=== PATIENT | female | born 1970 | race Caucasian/White ===

== ENCOUNTER 2017-04-16 19:48 | Emergency (ER) | payer BC, OTHER ==
[~2017-04-16] VITALS: Ht 152.4 cm; Wt 76.0 kg
[2017-04-16 19:54] VITALS: Ht 152.4 cm; Wt 76.0 kg
[2017-04-16] MEDS ORDERED: CLIN-73 PO (20:29)
[2017-04-16] MEDS ORDERED: HYDR-906 PO (20:30)
--- NOTE | 2017-04-16 20:54 | ERD ---
ER Documentation Chief Complaint Date/Time DATE: 04/16/17 TIME: 20:47 Chief Complaint PAIN UNDER L EYE FOR 3 WEEKS HPI This is a 47-year-old female presents to the ER with molar pain for the last 3 weeks. Patient states that she has a bridge next to the molar and that she has had throbbing pain. Patient states that today she noticed that area above the molar was getting slightly swollen. Patient denies any fevers or chills. She denies any difficulty swallowing. Patient states that the murmur is more painful whenever she eats. Patient went to the dentist about a month ago and said that everything was normal at that time. ROS 12 point review of systems was done, all negative except per HPI. Medications Home Meds Active Scripts Hydrocodone/Acetaminophen ([place] 5-325 Tablet) 1 Each Tablet, 1 TAB PO Q6H Y for PAIN, #10 TAB Prov:SHAWN MOODY 04/16/17 Clindamycin Hcl* (Clindamycin Hcl*) 300 Mg Capsule, 300 MG PO TID for 10 Days, CAP Prov:SHAWN MOODY 04/16/17 Allergies Allergies: Coded Allergies: No Known Allergy (Unverified , 04/16/17) PMhx/Soc History of Surgery: Yes (HYSTERECTOMY) Hx Miscellaneous Medical Probl: Yes (DENTAL WORK.) Hx Alcohol Use: No Hx Substance Use: No Hx Tobacco Use: No Smoking Status: Never smoker Physical Exam Vitals Vital Signs Date Time Temp Pulse Resp B/P Pulse Ox O2 Delivery O2 Flow Rate FiO2 04/16/17 19:54 98.6 97 16 166/86 99 Physical Exam GENERAL: The patient is well developed and appropriate for usual state of health , in no apparent distress. HEENT: Atraumatic. patient has multiple fillings, the molar that hurts her has a silver crown over it. there is mild erythema and swelling of the gum above the molar. there is no fullness or tenderness to palpation to the bottom of the mouth. no facial swelling is seen CHEST: Clear to auscultation bilaterally. There are no rales, wheezes or rhonchi. HEART: Regular rate and rhythm. No murmurs, clicks, rubs or gallops. NEURO: Alert and oriented. SKIN:The skin is warm and dry. Procedures/MDM This is a 47-year-old female presents to the ER with molar pain for the last 3 weeks. Patient was advised to visit her dentist, patient for deep space infection, Kelechi's angina, deep cavernous thrombosis is low. Patient may have a developing abscess, she will be sent home with clindamycin and Alabaster for pain. Patient is afebrile and well-appearing. She is to follow-up with her primary care doctor within 1-2 days return to ER sooner if symptoms worsen. My medical decision making was shared with the patient she understands and agrees with plan. Departure Diagnosis: Primary Impression: Pain, dental Condition: Stable Patient Instructions: Dental Abscess Additional Instructions: Llame al doctor MAANA y yady anthony CATRACHO PARA DENTRO DE 1-2 BANKS.Dgale a la secretaria que nosotros le instruimos hacer esta catracho.Avise o llame si hadley condicin se empeora antes de la catracho. Regresa aqui si peor o no mejor. SHAWN MOODY Apr 16, 2017 20:54
== END 2017-04-16 20:44 | disposition home or self-care (01) ==
LOC: FTE 19:48
DX: K08.89 Other specified disorders of teeth and supporting structures (principal)
CPT/HCPCS: 99284

== ENCOUNTER 2017-07-14 12:06 | Emergency (ER) | payer BC ==
[~2017-07-14] VITALS: Ht 160 cm; Wt 73.0 kg
[~2017-07-14 12:06] MED LIST: CLIN-73 PO; HYDR-906 PO
[2017-07-14 12:10] VITALS: Ht 160 cm; Wt 73.0 kg
[2017-07-14] MEDS ORDERED: KETOROLAC 30 MG INJ IV STA (14:07)
[2017-07-14] MEDS ORDERED: SOD CHLORIDE 0.9% 1,000 ML IV ONE (14:30)
[2017-07-14 15:10] VITALS: BP 138/88; PULSE 87; RESP 20; TEMP 98.6
[2017-07-14] MEDS ORDERED: NAPR-685 PO (15:20)
[2017-07-14] MEDS ORDERED: POLY10DR19 BOTH EYES (15:30)
--- NOTE | 2017-07-14 15:30 | ERD ---
ER Documentation Chief Complaint Date/Time DATE: 07/14/17 TIME: 15:24 Chief Complaint Patient complains of vision problems HPI This 47-year-old female returned from [facility] yesterday. She stated she had symptoms of viral illness while she was there. She had body aches as well as blurred vision and itchy eyes as well as mild lightheadedness. She states that symptoms have all improved. She had seen a clinic and also I would remain given antibiotic eyedrops that made her eyes much better. States that she still has some itching and redness. Also states that although it has improved she has occasional lightheadedness and mild generalized body aches. She denies any fevers or chills. No chest pain or nausea currently ROS All systems reviewed and are negative except as per history of present illness. Medications Home Meds Active Scripts Naproxen* (Naproxen*) 375 Mg Tablet, 375 MG PO BID Y for PAIN, #10 TAB Prov:CARIDADALFREDA 07/14/17 Hydrocodone/Acetaminophen ([place] 5-325 Tablet) 1 Each Tablet, 1 TAB PO Q6H Y for PAIN, #10 TAB Prov:SHAWN MOODY 04/16/17 Clindamycin Hcl* (Clindamycin Hcl*) 300 Mg Capsule, 300 MG PO TID for 10 Days, CAP Prov:HEIDYSHAWN QUESADA C 04/16/17 Allergies Allergies: Coded Allergies: No Known Allergy (Unverified , 04/16/17) PMhx/Soc History of Surgery: Yes (HYSTERECTOMY) Anesthesia Reaction: No Hx Neurological Disorder: No Hx Respiratory Disorders: No Hx Cardiac Disorders: No Hx Psychiatric Problems: No Hx Miscellaneous Medical Probl: Yes (DENTAL WORK.) Hx Alcohol Use: No Hx Substance Use: No Hx Tobacco Use: No Smoking Status: Never smoker Physical Exam Vitals Vital Signs Date Time Temp Pulse Resp B/P Pulse Ox O2 Delivery O2 Flow Rate FiO2 07/14/17 13:10 98.6 86 20 147/79 100 Room Air 07/14/17 12:10 98.6 87 20 194/95 98 Physical Exam Const: [] No distress, smiling, pleasant Head: Atraumatic Eyes: Very mild conjunctival injection, almost imperceptible. Funduscopic exam normal. Acuity 20/20, 20/40 ENT: Normal External Ears, Nose and Mouth. Membranes clear bilaterally, oropharynx within normal limits Neck: Full range of motion..~ No meningismus. Adenopathy. Resp: Clear to auscultation bilaterally Cardio: Regular rate and rhythm, no murmurs Abd: Soft, non tender, non distended. Normal bowel sounds Skin: No petechiae or rashes Ext: No cyanosis, or edema Neur: Awake and alert 3, no focal deficits Psych: Normal Mood and Affect Results 24 hrs Current Medications Medications (Trade) Dose Ordered Sig/[place] Route PRN Reason Start Time Stop Time Status Last Admin Dose Admin Sodium Chloride (NS) 1,000 ml @ 1,000 mls/hr Q1H ONCE IV 07/14/17 14:30 07/14/17 15:29 07/14/17 14:20 Ketorolac Tromethamine (Toradol) 30 mg ONCE STAT IV 07/14/17 14:07 07/14/17 14:08 DC 07/14/17 14:20 Procedures/MDM 47-year-old female with potential viral syndrome although symptoms are all resolving currently. She is given a liter of normal saline and some Toradol. She is feeling much better. She has mild conjunctival injection and that she states is much better than before denies any blurred vision. Stable vital signs. Patient has primary care follow-up and times where greatly improved and almost resolved emergency room. We will discharge her with naproxen, and since I cannot know was in the antibiotic drops the patient finished in [facility], I am going to give her prescription for Polytrim drops. She is here primary care doctor in 2 3 days and get an ophthalmology referral unless her eye symptoms are completely resolved. Departure Diagnosis: Primary Impression: Conjunctivitis Additional Impression: Dehydration, mild Condition: Stable Patient Instructions: Dehydration, Conjunctivitis, Non-Specific, Viral Syndrome (Adult) Referrals: COMMUNITY CLINICS YOU HAVE RECEIVED A MEDICAL SCREENING EXAM AND THE RESULTS INDICATE THAT YOU DO NOT HAVE A CONDITION THAT REQUIRES URGENT TREATMENT IN THE EMERGENCY DEPARTMENT. FURTHER EVALUATION AND TREATMENT OF YOUR CONDITION CAN WAIT UNTIL YOU ARE SEEN IN YOUR DOCTORS OFFICE WITHIN THE NEXT 1-2 DAYS. IT IS YOUR RESPONSIBILITY TO MAKE AN APPOINTMENT FOR FOLOW-UP CARE. IF YOU HAVE A PRIMARY DOCTOR --you should call your primary doctor and schedule an appointment IF YOU DO NOT HAVE A PRIMARY DOCTOR YOU CAN CALL OUR PHYSICIAN REFERRAL HOTLINE AT IF YOU CAN NOT AFFORD TO SEE A PHYSICIAN YOU CAN CHOSE FROM THE FOLLOWING [facility] [address] [facility] [address] [facility] [address] [facility] [address] [facility]. [facility] [phone] [facility]. [facility]. [address] [place] Additional Instructions: Llame al doctor MAANA y yady anthony CATRACHO PARA DENTRO DE 2-3 BANKS.Dgale a la secretaria que nosotros le instruimos hacer esta catracho. Si todavia tiene comezone de los ojos consigue un referral para un OPTOMALAGIST. Avise o llame si hadley condicin se empeora antes de la catracho. Regresa aqui si peor o no mejor. ALFREDA MCLEAN DO Jul 14, 2017 15:30
== END 2017-07-14 16:01 | disposition home or self-care (01) ==
LOC: E/R 12:06
DX: H10.9 Unspecified conjunctivitis (principal); E86.0 Dehydration
CPT/HCPCS: 96374; 99284; J1885; J7030

== ENCOUNTER 2017-11-01 11:08 | Emergency (ER) | END 2017-11-01 12:35 | disposition home or self-care (01) ==

== ENCOUNTER 2017-11-13 12:17 | Emergency (ER) | END 2017-11-13 15:19 | disposition home or self-care (01) ==

== ENCOUNTER 2018-02-06 13:56 | Emergency (ER) | END 2018-02-06 15:19 | disposition home or self-care (01) ==